=== PATIENT | female | born 1965 | race African-American/Black ===

== ENCOUNTER 2016-12-01 10:04 | Emergency (ER) | payer OTHER ==
[2016-12-01 10:11] VITALS: BP 106/61; PULSE 80; TEMP 98.4; BMI 28.8
[2016-12-01] MEDS ORDERED: IBUPROFEN 600 MG TABLET (FP) PO ONE ×2 (11:40→11:43)
--- NOTE | 2016-12-01 11:43 | PDOC ---
History of Present Illness - General Chief Complaint: Sore Throat Stated Complaint: UNABLE TO SWALLOW Time Seen by Provider: 12/01/16 11:25 History Source: Patient Exam Limitations: No Limitations - History of Present Illness Initial Comments: 12/01/16 11:40 51 yr female with sore throat for 2 days no fever no chills. Pt is able to tolerate water well. Associated Symptoms: reports: denies symptoms Past History - Past Medical History Allergies/Adverse Reactions: Allergies Allergy/AdvReac Type Severity Reaction Status Date / Time No Known Allergies Allergy Verified 12/01/16 10:06 Home Medications: Ambulatory Orders Ibuprofen 800 mg PO TID PRN #21 tablet 12/01/16 Other medical history: DENIES - Surgical History Appendectomy: Yes - Immunization History Immunization Up to Date: Yes - Psycho/Social/Smoking Cessation Hx Suicidal Ideation: No Smoking History: Never smoked Have you smoked in the past 12 months: No Information on smoking cessation initiated: No Hx Alcohol Use: No Drug/Substance Use Hx: No Substance Use Type: None Review of Systems - Review of Systems Able to Perform ROS?: Yes Is the patient limited [place] proficient: No Constitutional: No: Symptoms Reported HEENTM: Yes: See HPI *Physical Exam - Vital Signs Last Vital Signs Temp Pulse Resp BP Pulse Ox 98.4 F 80 16 106/61 99 12/01/16 10:06 12/01/16 10:06 12/01/16 10:06 12/01/16 10:06 12/01/16 10:06 - Physical Exam General Appearance: Yes: Nourished, Appropriately Dressed HEENT: positive: EOMI, ZACHARY, Normal ENT Inspection, TMs Normal, Pharynx Normal, Pharyngeal Erythema. negative: Tonsillar Exudate, Tonsillar Erythema Neck: positive: Supple. negative: Tender, Lymphadenopathy (R), Lymphadenopathy (L) Respiratory/Chest: positive: Lungs Clear, Normal Breath Sounds Cardiovascular: positive: Regular Rhythm, Regular Rate Gastrointestinal/Abdominal: positive: Normal Bowel Sounds, Soft Musculoskeletal: positive: Normal Inspection Extremity: positive: Normal Capillary Refill, Normal Inspection, Normal Range of Motion Integumentary: positive: Normal Color, Dry, Warm Neurologic: positive: Fully Oriented, Alert, Normal Mood/Affect, Normal Response , Motor Strength 5/5 Medical Decision Making - Medical Decision Making 12/01/16 12:00 cc: sore throat pt is non toxic stable vital signs pt is able to tolerate drinking well will check rapid strep *DC/Admit/Observation/Transfer Diagnosis at time of Disposition: Viral pharyngitis - Discharge Dispostion Disposition: HOME Condition at time of disposition: Good - Prescriptions Prescriptions: Ibuprofen 800 mg PO TID PRN #21 tablet PRN Reason: Pain - Referrals Referrals: Zaida Harvey [Primary Care Provider] - Kane Stearns MD [Staff Physician] - - Patient Instructions Additional Instructions: gargle with warm salt water 4-5 times a day take motrin 800mg every 6hrs for pain as prescribed soft foods, pleanty of fluids follow with the ENT if symptoms worsen or persist
== END 2016-12-01 12:25 | disposition home or self-care (01) ==
LOC: JERFT 10:04
DX: J02.9 Acute pharyngitis, unspecified (principal)
CPT/HCPCS: 87070; 87430; 99281-25